=== PATIENT | female | born 1970 | race Caucasian/White ===

== ENCOUNTER 2021-08-06 12:52 | Emergency (ER) | payer SELFPAY ==
[~2021-08-06] VITALS: Ht 157.5 cm; Wt 68.0 kg
[2021-08-06] MEDS ORDERED: SUMATRIPTAN SU100 MG PO (13:55)
[2021-08-06] MEDS ORDERED: BUTALB-ACETAMI1 EACH PO (13:55)
[2021-08-06] MEDS ORDERED: GABAPENTIN300 MG PO (13:56)
[2021-08-06] MEDS ORDERED: PAROXETINE HCL40 MG PO (13:56)
[2021-08-06] MEDS ORDERED: ZANAFLEX4 MG PO (13:57)
[2021-08-06] MEDS ORDERED: UBRELVY100 MG PO (13:57)
[2021-08-06] MEDS ORDERED: SUMATRIPTAN20 MG NAS (13:58)
[2021-08-06] MEDS ORDERED: BUPROPION HCL150 M2 PO (13:58)
[2021-08-06] MEDS ORDERED: LEVOTHYROXINE88 MCG PO (13:58)
[2021-08-06] MEDS ORDERED: SIMVASTATIN20 MG PO (13:59)
[2021-08-06] MEDS ORDERED: ACTEMRA162 MG/0.9 SUB-Q (13:59)
--- OUTSIDE RECORDS SUMMARY | 2021-08-06 14:32 | XMS ---
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 E.Vladislav [facility] COUNT (12 MO.) [facility] [place] [address] [place] TOTAL 4 NOTE: Visits indicate total known visits. ED/UCC VISIT TRACKING (12 MO.) 08/06/2021 12:54 [facility] [place] TYPE: Emergency COMPLAINT: - FLU SYMPTOMS 05/05/2021 14:11 [facility] [place] TYPE: Emergency COMPLAINT: - 2 WEEKS - MIGRAINE/NAUSEA DIAGNOSES: - Dehydration - Nausea with vomiting, unspecified - Migraine, unspecified, not intractable, without status migrainosus - Personal history of peptic ulcer disease - Personal history of peptic ulcer disease - Dehydration - Nausea with vomiting, unspecified - Migraine, unspecified, not intractable, without status migrainosus 04/18/2021 16:32 [facility] [place] TYPE: Emergency COMPLAINT: - HEADACHE DIAGNOSES: - Hypothyroidism, unspecified - Hyperlipidemia, unspecified - mortgage loan counselor (current) use of opiate analgesic - Other consumer affairs director (current) drug therapy - Other specified anxiety disorders - Allergy status to other drugs, medicaments and biological substances - Other chronic pain - Nausea with vomiting, unspecified - Allergy status to analgesic agent - Migraine, unspecified, not intractable, without status migrainosus - Rheumatoid arthritis without rheumatoid factor, unspecified site 04/14/2021 17:37 [facility] [place] TYPE: Emergency COMPLAINT: - Headache. DIAGNOSES: - Heberden's nodes (with arthropathy) - Allergy status to narcotic agent - Allergy status to other drugs, medicaments and biological substances - Other specified anxiety disorders - Rheumatoid arthritis without rheumatoid factor, unspecified site - Other chronic pain - Migraine, unspecified, not intractable, without status migrainosus - Other consumer affairs director (current) drug therapy INPATIENT VISIT TRACKING (12 MO.) No inpatient visits to display in this time frame [email or web address]
== END 2021-08-06 16:56 | disposition home or self-care (01) ==
LOC: ED 12:52
DX: U07.1 COVID-19 (principal); G43.909 Migraine, unspecified, not intractable, without status migrainosus; Z23 Encounter for immunization; Z88.6 Allergy status to analgesic agent; Z88.5 Allergy status to narcotic agent; Z88.8 Allergy status to other drugs, medicaments and biological substances; Z79.899 Other long term (current) drug therapy
CPT/HCPCS: 71045; 96374; 96375; 96376; 99283-25; J1170; J1200; J2405; J7030; M0247

== ENCOUNTER 2021-11-18 12:24 | Emergency (ER) | payer OTHER ==
[~2021-11-18] VITALS: Ht 157.5 cm; Wt 64.4 kg
[~2021-11-18 12:24] MED LIST: ACTEMRA162 MG/0.9 SUB-Q; BUPROPION HCL150 M2 PO; BUTALB-ACETAMI1 EACH PO; GABAPENTIN300 MG PO; LEVOTHYROXINE88 MCG PO; PAROXETINE HCL40 MG PO; SIMVASTATIN20 MG PO; SUMATRIPTAN SU100 MG PO; SUMATRIPTAN20 MG NAS; UBRELVY100 MG PO; ZANAFLEX4 MG PO
--- OUTSIDE RECORDS SUMMARY | 2021-11-18 12:26 | XMS ---
PreManage Notification: MALIK RUTLEDGE Security Veterinary Anatomist Events No recent Security Events currently on file CRITERIA MET - RADHA CARE PROVIDERS CARMELA CORNEJO Physician Greenhouse Manager Current PHONE: [phone] YAEL CRISTOBAL [facility] 08/07/2021-Current MD HUBBARD PHONE: Unknown Joselyn has no Care Guidelines for this patient. E.DTiki [facility] (12 MO.) [facility] [place] [place] TOTAL 5 NOTE: Visits indicate total known visits. ED/UCC VISIT TRACKING (12 MO.) 11/18/2021 12:[address] [facility] [place] TYPE: Emergency COMPLAINT: - HEADACHE 08/06/2021 12:54 [facility] [place] TYPE: Emergency COMPLAINT: - FLU SYMPTOMS DIAGNOSES: - Allergy status to narcotic agent - Migraine, unspecified, not intractable, without status migrainosus - Allergy status to analgesic agent - Encounter for immunization - Headache, unspecified - Allergy status to other drugs, medicaments and biological substances - COVID-19 - Other intermediate manager (current) drug therapy 05/05/2021 14:11 [facility] [place] TYPE: Emergency COMPLAINT: - 2 WEEKS - MIGRAINE/NAUSEA DIAGNOSES: - Dehydration - Nausea with vomiting, unspecified - Migraine, unspecified, not intractable, without status migrainosus - Personal history of peptic ulcer disease - Personal history of peptic ulcer disease - Dehydration - Nausea with vomiting, unspecified - Migraine, unspecified, not intractable, without status migrainosus 04/18/2021 16:32 [facility] [place] TYPE: Emergency COMPLAINT: - HEADACHE DIAGNOSES: - Hypothyroidism, unspecified - Hyperlipidemia, unspecified - terminal operator (current) use of opiate analgesic - Other penitentiary (current) drug therapy - Other specified anxiety disorders - Allergy status to other drugs, medicaments and biological substances - Other chronic pain - Nausea with vomiting, unspecified - Allergy status to analgesic agent - Migraine, unspecified, not intractable, without status migrainosus - Rheumatoid arthritis without rheumatoid factor, unspecified site 04/14/2021 17:37 [facility] [place] TYPE: Emergency COMPLAINT: - Headache. DIAGNOSES: - Heberden's nodes (with arthropathy) - Allergy status to narcotic agent - Allergy status to other drugs, medicaments and biological substances - Other specified anxiety disorders - Rheumatoid arthritis without rheumatoid factor, unspecified site - Other chronic pain - Migraine, unspecified, not intractable, without status migrainosus - Other intermediate manager (current) drug therapy INPATIENT VISIT TRACKING (12 MO.) No inpatient visits to display in this time frame [email or web address]
[2021-11-18] MEDS ORDERED: OXYCODONE-ACET1 EAC1 PO (15:25)
== END 2021-11-18 17:20 | disposition home or self-care (01) ==
LOC: ED 12:24
DX: G43.909 Migraine, unspecified, not intractable, without status migrainosus (principal); M06.9 Rheumatoid arthritis, unspecified; M19.90 Unspecified osteoarthritis, unspecified site; Z88.8 Allergy status to other drugs, medicaments and biological substances; Z88.5 Allergy status to narcotic agent; Z79.899 Other long term (current) drug therapy
CPT/HCPCS: 96374; 96375; 99283-25; J1170; J1200; J7030

== ENCOUNTER 2022-08-05 14:17 | Emergency (ER) | payer OTHER ==
[~2022-08-05] VITALS: Ht 157.5 cm; Wt 64.4 kg
[~2022-08-05 14:17] MED LIST changes: +OXYCODONE-ACET1 EAC1 PO
--- OUTSIDE RECORDS SUMMARY | 2022-08-05 14:20 | XMS ---
PreManage Notification: MALIK RUTLEDGE Security Varnisher Apprentice Events No recent Security Events currently on file CRITERIA MET - RADHA CARE PROVIDERS BERNARDO NOGUERA Physician Ferry Terminal Agent Current PHONE: Unknown YAEL CRISTOBAL [facility] 08/07/2021-Current MD HUBBARD PHONE: Unknown Joselyn has no Care Guidelines for this patient. E.Vladislav VISIT COUNT (12 MO.) 1 [facility] 1 [facility] TOTAL 7 NOTE: Visits indicate total known visits. ED/UCC VISIT TRACKING (12 MO.) [facility]05[facility]22 [facility] COMPLAINT: - HEADACHE 06/06/2022 12:[facility] TYPE: Emergency DIAGNOSES: - Lumbago with sciatica, right side - Unspecified fall, initial encounter - Fall - Fall; Back Pain 02/01/2022 09:40 [facility] [place] TYPE: Emergency COMPLAINT: - back pain/uti symptoms DIAGNOSES: - Allergy status to other drugs, medicaments and biological substances - Hypothyroidism, unspecified - Intervertebral disc disorders with myelopathy, lumbar region - Allergy status to narcotic agent - watermaster (current) use of opiate analgesic - Other chronic pain - Urinary tract infection, site not specified - Rheumatoid arthritis without rheumatoid factor, unspecified site - Heberden's nodes (with arthropathy) - Hyperlipidemia, unspecified - Other extermination supervisor (current) drug therapy - Radiculopathy, lumbar region 01/26/2022 14:45 [facility] [place] TYPE: Emergency COMPLAINT: - Back Pain_lower back, urinary retention - PAIN IN RIGHT LEG - LOW BACK PAIN, UNSPECIFIED - OTHER DIFFICULTIES WITH MICTURITION DIAGNOSES: 0. Low back pain, unspecified 1. Intervertebral disc disorders with radiculopathy, lumbar region 5. Spinal stenosis, lumbar region without neurogenic claudication 6. Other extermination supervisor (current) drug therapy 7. Personal history of nicotine dependence 8. Contact with and (suspected) exposure to COVID-19 01/25/2022 16:49 [facility] [place] TYPE: Emergency COMPLAINT: - Back Spasms DIAGNOSES: - Other extermination supervisor (current) drug therapy - Allergy status to narcotic agent - Hyperlipidemia, unspecified - Intervertebral disc disorders with myelopathy, lumbar region - Contact with and (suspected) exposure to COVID-19 - Other difficulties with micturition - Rheumatoid arthritis without rheumatoid factor, unspecified site - Hypothyroidism, unspecified - Allergy status to other drugs, medicaments and biological substances - Sciatica, right side - Heberden's nodes (with arthropathy) - Personal history of nicotine dependence 11/18/2021 12:24 [facility] [place] TYPE: Emergency COMPLAINT: - HEADACHE DIAGNOSES: - Allergy status to narcotic agent - Other prison (current) drug therapy - Rheumatoid arthritis, unspecified - Unspecified osteoarthritis, unspecified site - Migraine, unspecified, not intractable, without status migrainosus - Allergy status to other drugs, medicaments and biological substances - Headache, unspecified 08/06/2021 12:54 [facility] [place] TYPE: Emergency COMPLAINT: - FLU SYMPTOMS DIAGNOSES: - Allergy status to analgesic agent - Allergy status to narcotic agent - Other prison (current) drug therapy - Allergy status to other drugs, medicaments and biological substances - Encounter for immunization - Migraine, unspecified, not intractable, without status migrainosus - COVID-19 - Headache, unspecified INPATIENT VISIT TRACKING (12 MO.) 03/11/2022 05:48 [facility] TYPE: [facility] COMPLAINT: - TLIF [id number] DIAGNOSES: 0. Spinal stenosis, lumbar region without neurogenic claudication 1. Spinal stenosis, lumbar region with neurogenic claudication 2. Spondylosis without myelopathy or radiculopathy, lumbosacral region 3. Spondylosis without myelopathy or radiculopathy, lumbar region 4. Rheumatoid arthritis, unspecified 5. Retention of urine, unspecified 6. Unspecified urinary incontinence 7. Depression, unspecified 8. Anxiety disorder, unspecified 9. Hyperlipidemia, unspecified 10. Irritable bowel syndrome without diarrhea 11. Hypothyroidism, unspecified 12. Allergy status to analgesic agent 13. Personal history of urinary (tract) infections 14. Personal history of urinary calculi 15. Personal history of peptic ulcer disease 16. Allergy status to narcotic agent 17. Allergy status to other drugs, medicaments and biological substances 18. custodial (current) use of aspirin 19. Other extermination supervisor (current) drug therapy [email or web address]
== END 2022-08-05 17:34 | disposition home or self-care (01) ==
LOC: ED 14:17
DX: G43.909 Migraine, unspecified, not intractable, without status migrainosus (principal); Z88.8 Allergy status to other drugs, medicaments and biological substances; Z88.5 Allergy status to narcotic agent; Z79.899 Other long term (current) drug therapy
CPT/HCPCS: 96374; 96375; 99283-25; J1100; J1170; J1200; J2405; J7030

== ENCOUNTER 2023-02-03 09:44 | Emergency (ER) | payer OTHER ==
[~2023-02-03] VITALS: Ht 157.5 cm; Wt 64.4 kg
--- OUTSIDE RECORDS SUMMARY | ~2023-02-03 | XMS | Continuity of Care Document ---
Demographics + + + | Address | [address] | | | [place] [address] | + + + | Preferred Language | Unknown | + + + | Marital Status | | + + + | Restorationist Affiliation | Unknown | + + + | Race | White | + + + | Ethnic Group | Not or | + + + Author + + + | Author | [facility] | + + + | Organization | [facility] | + + + | Address | [address] | | | [place] [address] | + + + | Phone | | + + + Care Team Providers + + + + | Care Land Survey Technician Name | Role | Phone | + + + + Unavailable | Unavailable | + + + + Unavailable | Unavailable | + + + + Unavailable | Unavailable | + + + + Allergies and Intolerances + + + + + + | date | description | facility | reaction | severity | + + + + + + | (no date) | Ketorolac | [facility] | (no reaction) | (no severity) | | | [facility] | | | + + + + + + | (no date) | NO ALLERGY | [facility] | (no reaction) | (no severity) | | | INFORMATION | [facility] - | | | | | AVAILABLE | [facility] | | | + + + + + + | (no date) | DROPERIDOL | [facility] | (no reaction) | (no severity) | | | | [facility] | | | | [facility] | | | + + + + + + | (no date) | MORPHINE | [facility] | (no reaction) | (no severity) | | | | [facility] | | | | [facility] | | | + + + + + + | (no date) | Difficulty | [facility] | (no reaction) | (no severity) | | | breathing | [facility] | | | + + + + + + | (no date) | Mild | [facility] | (no reaction) | (no severity) | | | | [facility] | | | + + + + + + | (no date) | Droperidol | [facility] | (no reaction) | (no severity) | | | | [facility] | | | + + + + + + | (no date) | Delirium | [facility] | (no reaction) | (no severity) | | | | [facility] | | | + + + + + + | (no date) | Ketorolac | [facility] | (no reaction) | (no severity) | | | [facility] | | | + + + + + + | (no date) | Droperidol | [facility] | (no reaction) | (no severity) | | | | [facility] | | | + + + + + + | (no date) | Metoclopramide | [facility] | (no reaction) | (no severity) | | | | [facility] | | | + + + + + + | (no date) | Promethazine | [facility] | (no reaction) | (no severity) | | | | [facility] | | | + + + + + + | (no date) | Morphine | [facility] | (no reaction) | (no severity) | | | | [facility] | | | + + + + + + | (no date) | Itching | [facility] | (no reaction) | (no severity) | | | | [facility] | | | + + + + + + | (no date) | NSAIDS | [facility] | (no reaction) | (no severity) | | | (NON-STEROIDAL | [facility] - | | | | | ANTI-INFLAMMATO | [facility] | | | | | [facility]) | | | | + + + + + + | (no date) | PROMETHAZINE | [facility] | (no reaction) | (no severity) | | | | [facility] | [facility] | | | + + + + + + | (no date) | METOCLOPRAMIDE | [facility] | (no reaction) | (no severity) | | | | [facility] | [facility] | | | + + + + + + | (no date) | KETOROLAC | [facility] | (no reaction) | (no severity) | | | | [facility] | | | [facility] | | | + + + + + + | (no date) | Metoclopramide | [facility] | (no reaction) | (no severity) | | | | [facility] | | | + + + + + + | (no date) | Morphine | [facility] | (no reaction) | (no severity) | | | | [facility] | | | + + + + + + | (no date) | Morphine | [facility] | (no reaction) | (no severity) | | | | [facility] | | | + + + + + + | (no date) | Promethazine | [facility] | (no reaction) | (no severity) | | | | [facility] | | | + + + + + + | (no date) | Promethazine | [facility] | (no reaction) | (no severity) | | | | [facility] | | | + + + + + + | (no date) | Metoclopramide | [facility] | (no reaction) | (no severity) | | | | [facility] | | | + + + + + + | (no date) | Droperidol | [facility] | (no reaction) | (no severity) | | | | [facility] | | | + + + + + + | (no date) | Ketorolac | [facility] | (no reaction) | (no severity) | | | | [facility] | | | + + + + + + Encounters No information. Functional Status No information. Immunizations No information. Medications + + + + | date | description | facility | + + + + | 2022-08-11 00:00 | OXYCODONE | [facility] | | | HCL/ACETAMINOPHEN | | + + + + | 2022-12-02 00:00 | OXYCODONE | [facility] | | | HCL/ACETAMINOPHEN | | + + + + | 2022-08-11 00:00 | TOCILIZUMAB | [facility] | + + + + | 2022-12-02 00:00 | TOCILIZUMAB | [facility] | + + + + | 2022-08-11 00:00 | TIZANIDINE HCL | [facility] | + + + + | 2022-12-02 00:00 | TIZANIDINE HCL | [facility] | + + + + | 2022-08-11 00:00 | PAROXETINE HCL | [facility] | + + + + | 2022-12-02 00:00 | PAROXETINE HCL | [facility] | + + + + | 2022-08-11 00:00 | Ubrogepant | [facility] | + + + + | 2022-12-02 00:00 | Ubrogepant | [facility] | + + + + | 2022-08-11 00:00 | GABAPENTIN | [facility] | + + + + | 2022-12-02 00:00 | GABAPENTIN | [facility] | + + + + | 2022-08-11 00:00 | SIMVASTATIN | [facility] | + + + + | 2022-12-02 00:00 | SIMVASTATIN | [facility] | + + + + | 2022-08-11 00:00 | SUMATRIPTAN SUCCINATE | [facility] | + + + + | 2022-12-02 00:00 | SUMATRIPTAN SUCCINATE | [facility] | + + + + | 2022-08-11 00:00 | SUMATRIPTAN | [facility] | + + + + | 2022-12-02 00:00 | SUMATRIPTAN | [facility] | + + + + | 2022-12-02 00:00 | CLONIDINE HCL | [facility] | + + + + | 2022-08-11 00:00 | LEVOTHYROXINE SODIUM | [facility] | + + + + | 2022-12-02 00:00 | LEVOTHYROXINE SODIUM | [facility] | + + + + Problems + + + + | date | description | facility | + + + + | 2021-08-06 00:00 | Migraine headache | [facility] | + + + + | 2021-08-06 00:00 | Infection due to severe | [facility] | | | acute respiratory syndrome | | | | coronavirus 2 (SARS-CoV-2) | | + + + + | 2021-11-18 12:24 | Migraine, unspecified, not | [facility] | | | intractable, without | [facility] | | | status migrainosus | | + + + + | 2021-11-18 12:24 | Rheumatoid arthritis, | [facility] | | | unspecified | [facility] | + + + + | 2021-11-18 12:24 | Unspecified | [facility] | | | osteoarthritis, unspecified | [facility] | | | site | | + + + + | 2021-11-18 12:24 | Headache, unspecified | [facility] | | | | [facility] | + + + + | 2021-11-18 12:24 | Other shelter (current) | [facility] | | | drug therapy | [facility] | + + + + | 2021-11-18 12:24 | Allergy status to narcotic | [facility] | | | agent | [facility] | + + + + | 2021-11-18 12:24 | Allergy status to other | [facility] | | | drugs, medicaments and | [facility] | | | biological substances | | + + + + | 2022-06-06 12:25 | Fall | [facility] - | | | | [facility] | + + + + | 2022-06-06 12:25 | Lumbago with sciatica, | [facility] - | | | right side | [facility] | + + + + | 2022-06-06 12:25 | Unspecified fall, initial | [facility] - | | | encounter | [facility] | + + + + Procedures No information. Results/Labs +--------+--------+ +---------+--------+---------+ | test | date | facility | value | unit | notes | +--------+--------+ +---------+--------+---------+ + + | Result panel 1 | + + + + + + + + + | | 2022-06-06 | [facility] | (missing) | (missing) | (missing) | | (unavailable | 12:42 | Health | | | | | ) | | System - | | | | | | | [facility] | | | | + + + + + + + | | 2022-06-06 | [facility] | * Posterior | (missing) | (missing) | | (unavailable | 12:42 | Health | metallic | | | | ) | | System - | fusion from | | | | | | [facility] | L4 through | | | | | | | S1 using | | | | | | | bilateral | | | | | | | transpedicul | | | | | | | ar screws | | | | | | | and vertical | | | | | | | stabilizing | | | | | | | rods. | | | | | | | Metallic | | | | | | | interbody | | | | | | | fusion | | | | | | | devices at | | | | | | | L4-5 and | | | | | | | L5-S1. No | | | | | | | evidence of | | | | | | | hardware | | | | | | | complication | | | | | | | , failure or | | | | | | | subsidence. | | | + + + + + + + | | 2022-06-06 | [facility] | * There are | (missing) | (missing) | | (unavailable | 12:42 | Health | five | | | | ) | | System - | lumbar-type | | | | | | [facility] | vertebral | | | | | | | bodies. | | | | | | | Normal | | | | | | | height and | | | | | | | alignment.Th | | | | | | | ere are no | | | | | | | acute | | | | | | | fractures, | | | | | | | vertebral | | | | | | | body | | | | | | | compression | | | | | | | deformities | | | | | | | or | | | | | | | suspicious | | | | | | | osseous | | | | | | | abnormalitie | | | | | | | s. | | | + + + + + + + | | 2022-06-06 | [facility] | COMPARISON: | (missing) | (missing) | | (unavailable | 12:42 | Health | Lumbar | | | | ) | | System - | spine MRI, | | | | | | [facility] | 12/19/2014 | | | + + + + + + + | | 2022-06-06 | [facility] | DISCS: Mild | (missing) | (missing) | | (unavailable | 12:42 | Health | disc space | | | | ) | | System - | narrowing | | | | | | [facility] | and endplate | | | | | | | osteophyte | | | | | | | formation | | | | | | | above the | | | | | | | fusion | | | | | | | construct at | | | | | | | L3-4. | | | + + + + + + + | | 2022-06-06 | [facility] | Electronical | (missing) | (missing) | | (unavailable | 12:42 | Health | ly signed | | | | ) | | System - | by: Dennis | | | | | | [facility] | MD Kumar on | | | | | | | 06/06/2022 | | | | | | | 12:55 PM at | | | | | | | workstation | | | | | | | [id number] [id number] | | | + + + + + + + | | 2022-06-06 | [facility] | FACET | (missing) | (missing) | | (unavailable | 12:42 | Health | JOINTS: | | | | ) | | System - | Normal | | | | | | [facility] | alignment. | | | + + + + + + + | | 2022-06-06 | [facility] | FINDINGS: | (missing) | (missing) | | (unavailable | 12:42 | Health | | | | | ) | | System - | | | | | | | [facility] | | | | + + + + + + + | | 2022-06-06 | [facility] | | (missing) | (missing) | | (unavailable | 12:42 | Health | INDICATIONS: | | | | ) | | System - | Fall, 6 | | | | | | [facility] | weeks post | | | | | | | fusion | | | + + + + + + + | | 2022-06-06 | [facility] | PROCEDURE: | (missing) | (missing) | | (unavailable | 12:42 | Health | LUMBAR SPINE | | | | ) | | System - | - TWO TO | | | | | | [facility] | THREE VIEWS | | | + + + + + + + | | 2022-06-06 | [facility] | | (missing) | (missing) | | (unavailable | 12:42 | Health | Procedure(s) | | | | ) | | System - | : * No | | | | | | [facility] | procedures | | | | | | | listed * | | | + + + + + + + | | 2022-06-06 | [facility] | SACROILIAC | (missing) | (missing) | | (unavailable | 12:42 | Health | JOINTS: | | | | ) | | System - | Symmetrical. | | | | | | [facility] | Sacral | | | | | | | foramina are | | | | | | | intact. | | | + + + + + + + | | 2022-06-06 | [facility] | SOFT | (missing) | (missing) | | (unavailable | 12:42 | Health | TISSUES: | | | | ) | | System - | Surgical | | | | | | [facility] | clips, right | | | | | | | upper | | | | | | | abdominal | | | | | | | quadrant. | | | + + + + + + + | | 2022-06-06 | [facility] | | (missing) | (missing) | | (unavailable | 12:42 | Health | Uncomplicate | | | | ) | | System - | d L4-S1 | | | | | | [facility] | fusion | | | | | | | construct. | | | + + + + + + + | | 2022-06-06 | [facility] | VERTEBRAE: | (missing) | (missing) | | (unavailable | 12:42 | Health | | | | | ) | | System - | | | | | | | [facility] | | | | + + + + + + + Social History + + + + | date | description | facility | + + + + | 2022-08-11 00:00 | [facility] | + + + + | 2022-12-02 00:00 | Unknown if ever smoked | [facility] | + + + + Vital Signs + + + +---------+ | date | measurement | value | units | + + + +---------+ | 2022-08-05 00:00 | BMI | 26.0 | kg/m2 | + + + +---------+ | 2022-08-05 00:00 | BP_diastolic | 109 | mmHg | + + + +---------+ | 2022-08-05 00:00 | BP_systolic | 119 | mmHg | + + + +---------+ | 2022-08-05 00:00 | heart_rate | 70 | /min | + + + +---------+ | 2022-08-05 00:00 | height_metric | 157.48 | cm | + + + +---------+ | 2022-08-05 00:00 | height_standard | 62 | in | + + + +---------+ | 2022-08-05 00:00 | o2_saturation | 95 | % | + + + +---------+ | 2022-08-05 00:00 | respiration_rate | 16 | /min | + + + +---------+ | 2022-08-05 00:00 | temperature_metric | 36.44 | C | | | | | | + + + +---------+ | 2022-08-05 00:00 | | 97.6 | F | | | temperature_standar | | | | | d | | | + + + +---------+ | 2022-08-05 00:00 | weight_metric | 64.41 | kg | + + + +---------+ | 2022-08-05 00:00 | weight_standard | 142 | lb | + + + +---------+ | 2022-12-02 00:00 | BMI | 26.0 | kg/m2 | + + + +---------+ | 2022-12-02 00:00 | BP_diastolic | 79 | mmHg | + + + +---------+ | 2022-12-02 00:00 | BP_systolic | 135 | mmHg | + + + +---------+ | 2022-12-02 00:00 | heart_rate | 67 | /min | + + + +---------+ | 2022-12-02 00:00 | height_metric | 157.48 | cm | + + + +---------+ | 2022-12-02 00:00 | height_standard | 62 | in | + + + +---------+ | 2022-12-02 00:00 | o2_saturation | 98 | % | + + + +---------+ | 2022-12-02 00:00 | respiration_rate | 16 | /min | + + + +---------+ | 2022-12-02 00:00 | temperature_metric | 36.67 | C | | | | | | + + + +---------+ | 2022-12-02 00:00 | | 98 | F | | | temperature_standar | | | | | d | | | + + + +---------+ | 2022-12-02 00:00 | weight_metric | 64.41 | kg | + + + +---------+ | 2022-12-02 00:00 | weight_standard | 142 | lb | + + + +---------+"
--- OUTSIDE RECORDS SUMMARY | ~2023-02-03 | XMS | Continuity of Care Document ---
Demographics + + + | Address | [address] | | | [place] [address] | + + + | Preferred Language | Unknown | + + + | Marital Status | | + + + | Yarsanism Affiliation | Unknown | + + + | Race | White | + + + | Ethnic Group | Not or | + + + Author + + + | Author | [facility] | + + + | Organization | [facility] | + + + | Address | [address] | | | [place] [address] | + + + | Phone | | + + + Care Team Providers + + + + | Care Engine Watchman Name | Role | Phone | + [...] | | | | | AVAILABLE | [place] | | | + + + + + + | (no date) | DROPERIDOL | [facility] | (no reaction) | (no severity) | | | | [facility] | | | | | | [place] | | | + + + + + + | (no date) | MORPHINE | [facility] | (no reaction) | (no severity) | | | | [facility] | | | | | | [place] | | | + + + + [...] | | | | | ANTI-INFLAMMATO | [place] | | | | | [facility]) | | | | + + + + + + | (no date) | PROMETHAZINE | [facility] | (no reaction) | (no severity) | | | | [facility] | | | | | [place] | | | + + + + + + | (no date) | METOCLOPRAMIDE | [facility] | (no reaction) | (no severity) | | | | [facility] | | | [place] | | | + + + + + + | (no date) | KETOROLAC | [facility] | (no reaction) | (no severity) | | | | [facility] | | | | | | [place] | | | + + + + [...] + | 2022-08-11 00:00 | OXYCODONE | [facility] | | | HCL/ACETAMINOPHEN | | + + + + | 2022-12-02 00:00 | OXYCODONE | [facility] | | | HCL/ACETAMINOPHEN | | + + + + | 2022-08-11 00:00 | TOCILIZUMAB | [facility] | + + + + | 2022-12-02 00:00 | TOCILIZUMAB | [facility] | + + + + | 2022-08-11 00:00 | TIZANIDINE HCL | [facility] | + + + + | 2022-12-02 00:00 | TIZANIDINE HCL | [facility] | + + + + | 2022-08-11 00:00 | PAROXETINE HCL | [facility] | + + + + | 2022-12-02 00:00 | PAROXETINE HCL | [facility] | + + + + | 2022-08-11 00:00 | Ubrogepant | [facility] | + + + + | 2022-12-02 00:00 | Ubrogepant | [facility] | + + + + | 2022-08-11 00:00 | GABAPENTIN | [facility] | + + + + | 2022-12-02 00:00 | GABAPENTIN | [facility] | + + + + | 2022-08-11 00:00 | SIMVASTATIN | [facility] | + + + + | 2022-12-02 00:00 | SIMVASTATIN | [facility] | + + + + | 2022-08-11 00:00 | SUMATRIPTAN SUCCINATE | [facility] | + + + + | 2022-12-02 00:00 | SUMATRIPTAN SUCCINATE | [facility] | + + + + | 2022-08-11 00:00 | SUMATRIPTAN | [facility] | + + + + | 2022-12-02 00:00 | SUMATRIPTAN | [facility] | + + + + | 2022-12-02 00:00 | CLONIDINE HCL | [facility] | + + + + | 2022-08-11 00:00 | LEVOTHYROXINE SODIUM | [facility] | + + + + | 2022-12-02 00:00 | LEVOTHYROXINE SODIUM | [facility] | + + + + Problems + + + + | date | description | facility | + + + + | 2021-08-06 00:00 | Migraine headache | [facility] | + + + + | 2021-08-06 00:00 | Infection due to severe | [facility] | | | acute respiratory syndrome | [...] + + | 2021-11-18 12:24 | Other detention (current) | [facility] | | | [...] | 2022-06-06 12:25 | Fall | [facility] | | | | [place] | + + + + | 2022-06-06 12:25 | Lumbago with sciatica, | [facility] - | | | right side | [place] | + + + + | 2022-06-06 12:25 | Unspecified fall, initial | [facility] - | | | encounter | [place] | + + + + Procedures No [...] | | | | | | | [place] | | | | + + + + + + + | | 2022-06-06 | [facility] | * Posterior | (missing) | (missing) | | (unavailable | 12:42 | Health | metallic | | | | ) | | System - | fusion from | | | | | | [place] | L4 through | | | | [...] lumbar-type | | | | | | [place] | vertebral | | | | | [...] | | | | | | | [employer] [id number] | | | + + + + [...] No | | | | | | [place] | procedures | | | | | | | listed * | | | + + + + + + + | | 2022-06-06 | [facility] | SACROILIAC | (missing) | (missing) | | (unavailable | 12:42 | Health | JOINTS: | | | | ) | | System - | Symmetrical. | | | | | | [place] | Sacral | | | | | | | foramina are | | | | | | | intact. | | | + + + + + + + | | 2022-06-06 | [facility] | SOFT | (missing) | (missing) | [...] L4-S1 | | | | | | [place] | fusion | | | | | | | construct. | | | + + + + + + + | | 2022-06-06 | [facility] | VERTEBRAE: | (missing) | (missing) | | (unavailable | 12:42 | Health | | | | | ) | | System - | | | | | | | [place] | | | | + + + + + + + Social History + + + + | date | description | facility | + + + + | 2022-08-11 00:00 | [facility] | + + + + | 2022-12-02 00:00 | Unknown if ever smoked | [facility] | + + + + Vital Signs [...]
[~2023-02-03 09:44] MED LIST changes: +CLONIDINE HCL0.1 MG PO
--- OUTSIDE RECORDS SUMMARY | 2023-02-03 09:49 | XMS ---
PreManage Notification: MALIK RUTLEDGE Security Splitting Machine Operator Events No recent Security Events currently on file CRITERIA MET - BLAKE CARE PROVIDERS BERNARDO NOGUERA Physician Sewing Machine Operator Semiautomatic Current PHONE: Unknown YAEL CRISTOBAL [facility] 08/07/2021-Pasquale HUBBARD PHONE: Unknown Joselyn has no Care Guidelines for this patient. Jorge VISIT COUNT (12 MO.) Y[facility] TOTAL 4 NOTE: Visits indicate total known visits. ED/UCC VISIT TRACKING (12 MO.) 02/03/2023 09:45 [facility] [place] TYPE: Emergency COMPLAINT: - MIGRAINE 12/02/2022 17:42 [facility] [place] TYPE: Emergency COMPLAINT: - HEADACHE DIAGNOSES: - Allergy status to analgesic agent - Allergy status to narcotic agent - Allergy status to other drugs, medicaments and biological substances - Headache, unspecified - Migraine, unspecified, not intractable, without status migrainosus - Other roasterman (current) drug therapy 08/05/2022 14:17 [facility] TYPE: Emergency COMPLAINT: - HEADACHE DIAGNOSES: - Allergy status to narcotic agent - Allergy status to other drugs, medicaments and biological substances - Headache, unspecified - Migraine, unspecified, not intractable, without status migrainosus - Other fpc (current) drug therapy 06/06/2022 12:25 [facility] [place] TYPE: Emergency DIAGNOSES: - Lumbago with sciatica, right side - Unspecified fall, initial encounter - Fall - Fall; Back Pain INPATIENT VISIT TRACKING (12 MO.) 03/11/2022 05:48 [...] other drugs, medicaments and biological substances 18. [facility] (current) use of aspirin 19. Other roasterman (current) drug therapy [email or web address]
[2023-02-03 12:51] VITALS: BP 140/78
== END 2023-02-03 12:53 | disposition home or self-care (01) ==
LOC: ED 09:44
DX: G43.909 Migraine, unspecified, not intractable, without status migrainosus (principal); Z88.8 Allergy status to other drugs, medicaments and biological substances; Z88.5 Allergy status to narcotic agent; Z79.899 Other long term (current) drug therapy; Z79.890 Hormone replacement therapy
CPT/HCPCS: 96374; 96375; 96376; 99283 25; J1170; J1200; J2405; J7121